=== PATIENT | male | born 1995 | race Caucasian/White ===

== ENCOUNTER 2018-04-04 11:24 | Emergency (ER) | payer OTHER, BC ==
[2018-04-04] MEDS: LIDOCAINE/MYLANTA 40 ML BTL PO (12:08)
== END 2018-04-04 13:02 | disposition home or self-care (01) ==
LOC: FTE 11:24
DX: S63.91XA Sprain of unspecified part of right wrist and hand, initial encounter (principal); F17.210 Nicotine dependence, cigarettes, uncomplicated; Y04.0XXA Assault by unarmed brawl or fight, initial encounter
CPT/HCPCS: 73130; 73130-RT; 99283-25